=== PATIENT | male | born 1975 | race Caucasian/White ===

== ENCOUNTER 2017-02-21 13:31 | Emergency (ER) | payer SELFPAY ==
[~2017-02-21] VITALS: Ht 182.9 cm; Wt 99.8 kg
[2017-02-21 13:53] VITALS: BP 132/82
--- NOTE | 2017-02-21 14:24 | PHYS DOC ---
Past History Past Medical History: No Pertinent History Past Surgical History: No Surgical History Alcohol Use: None Drug Use: None Adult General Chief Complaint Chief Complaint: TOOTH ACHE OR PAIN HPI HPI Patient is a 42-year-old male who is complaining of pain in the area of his right jaw, behind and below his right ureter. He's had this pain for several days. The patient believes it is from an impacted wisdom tooth. He saw his dentist, who put him on clindamycin and referred him to an oral surgeon. The oral surgeon took x-rays and the tooth is impacted. He does have an appointment later this week for tooth extraction. He continues to have pain in the area and it now feels somewhat swollen. He was given Tylenol with Codeine for the pain and it is not helping. Patient denies fever. He denies history of otitis media or externa. He denies ear pain. Review of Systems Review of Systems Constitutional: Denies fever or chills [] HENT: As in history of present illness Allergies Allergies Allergies Coded Allergies Type Severity Reaction Last Updated Verified No Known Drug Allergies 02/21/17 No Physical Exam Physical Exam Constitutional: Well developed, well nourished, appears uncomfortable, alert, mentating normally, voice sounds normal, handling his secretions normally. HENT: Normocephalic, atraumatic, right auricle normal, right external ear canal is swollen and red with exudate present, right TM is white and dull in appearance. There is tenderness to palpation behind and under his right ear near the angle of the mandible. There is mild swelling generalized in this area , no mass. No palpable lymphadenopathy. Intraorally, there does appear to be a fractured second or third molar on the right mandibular. It's difficult to see, patient does not open his mouth very well. There is no elevation of the tongue. There is no evidence of gingival or periapical apical abscess. Posterior pharynx is normal in appearance. Eyes: conjunctiva normal, no discharge. [] Neck: Normal range of motion, no tenderness, supple, no stridor. [] Neurologic: Alert, normal motor function, no focal deficits noted. [] Current Patient Data Vital Signs Vital Signs Date Time Temp Pulse Resp B/P (MAP) Pulse Ox O2 Delivery O2 Flow Rate FiO2 02/21/17 13:53 98.5 89 17 100 Room Air EKG EKG [] Radiology/Procedures Radiology/Procedures [] Course & Med Decision Making Course & Med Decision Making Pertinent Labs and Imaging studies reviewed. (See chart for details) 42-year-old male presents with pain in the area of the right angle of the mandible, now developing some swelling below the right ear. This is been attributed to an impacted third molar and he is on antibiotics for that and has an oral surgery appointment. On exam, however, I believe he has right external otitis. I explained this to the patient and I advised him that I would like to place an ear wick and start him on antibiotic drops in the ear. The patient stated he does not want an ear wick, "just give me the drops". I told him I will write him a prescription for the antibiotic eardrops and as I left the room , the patient got up and exited the room, exited the emergency department without signing out. [] Dragon Disclaimer Dragon Disclaimer This chart was dictated in whole or in part using Voice Recognition software in a busy, high-work load, and often noisy Emergency Department environment. It may contain unintended and wholly unrecognized errors or omissions. Departure Departure: Impression: Primary Impression: External otitis of right ear Disposition: HOME, SELF-CARE Condition: STABLE Referrals: PCP,NO (PCP) Additional Instructions: Patient left prior to getting instructions or prescription. ELLE MORTENSEN MD Feb 21, 2017 14:24
== END 2017-02-21 14:30 | disposition home or self-care (01) ==
LOC: ER 13:31
DX: H60.91 Unspecified otitis externa, right ear (principal); R68.84 Jaw pain
CPT/HCPCS: 99281